=== PATIENT | female | born 1995 | race Hispanic/Latino ===

== ENCOUNTER 2019-12-04 20:16 | Inpatient (IN) | payer SELFPAY ==
[~2019-12-04] VITALS: Ht 160 cm; Wt 61.2 kg
[2019-12-04] MEDS ORDERED: ACETAMINOPHEN 325 MG TAB ONE (21:10)
[2019-12-04] MEDS ORDERED: ONDANSETRON HCL 4 MG/2 ML VIAL ONE (21:10)
[2019-12-04] MEDS ORDERED: MORPHINE SULFATE 4 MG/1ML SYG ONE (21:11)
[2019-12-04 21:30] LABS: APPEARANCE,URINE Cloudy (CLEAR); BILIRUBIN,URINE Small (NEGATIVE); COLOR,URINE Dark Yellow (YELLOW); GLUCOSE, URINE (UA) Negative (NEGATIVE); KETONES,URINE Trace mg/dL (NEGATIVE); LEUKOCYTE ESTERASE ,URINE Moderate (NEGATIVE); NITRATE,URINE Negative (NEGATIVE); OCCULT BLOOD,URINE Large (NEGATIVE); PH,URINE 6.5 (5.0-8.0); PROTEIN,URINE POS 1+ mg/dL (NEGATIVE)
[2019-12-04 21:32] LABS: BASOPHILS % (AUTO) 0.2 % (0.0-5.0); EOSINOPHILS % (AUTO) 0.4 % (0.0-8.0); HEMATOCRIT 37.1 % (36-48); MEAN CORPUSCULAR HEMOGLOBIN 28.8 pg (27.0-33.0); MEAN CORPUSCULAR HGB CONC 32.9 g/dL (32.0-36.0); MEAN CORPUSCULAR VOLUME 87.5 fL (79-99); MONOCYTES % (AUTO) 5.5 % (3.0-13.0); PLATELET COUNT (AUTO) 266 K/uL (130-400); RED BLOOD CELL COUNT(AUTO) 4.24 MIL/uL (4.00-5.50); RED CELL DISTRIBUTION WIDTH 13.1 % (11.0-15.5); WHITE BLOOD COUNT (AUTO) 25.3 K/uL (4.8-10.8)
[2019-12-04 21:40] LABS: HCG,QUAL RESULT NEGATIVE (NEGATIVE)
[2019-12-04 21:44] LABS: RBC,URINE 26-50 /HPF (0-1)
[2019-12-04 21:45] LABS: BACTERIA,URINE Rare /HPF (None Seen); CREATININE 0.8 mg/dL (0.5-1.5); POTASSIUM 3.1 mmol/L (3.5-5.1); TRANSITIONAL EPI CELLS,URINE Rare /HPF (None Seen)
[2019-12-04 21:46] LABS: SQUAMOUS EPITHELIAL CELL,UR Few /HPF (0-2)
[2019-12-04 21:50] LABS: ALBUMIN 3.5 g/dL (3.5-5.0); TOTAL PROTEIN, SERUM 8.5 g/dL (6.0-8.3)
[2019-12-04] MEDS ORDERED: ZOSYN 3.375GM+NS 50ML 50 ML IV ONE (22:08)
[2019-12-04] MEDS ORDERED: IOHEXOL-350 75 ML VIAL IV ONE (22:14)
[2019-12-05] MEDS ORDERED: LACTATED RINGERS 1000ML 1,000 ML IV SCH (00:16)
[2019-12-05] MEDS ORDERED: DIPHENHYDRAMINE HCL 25 MG CAPSULE PO PRN (00:30)
[2019-12-05] MEDS ORDERED: NITROGLYCERIN 0.4 MG SL TAB SL PRN (00:30)
[2019-12-05] MEDS ORDERED: LIDOCAINE HCL 2% VISCOUS 30 ML, MAG HYDROX/AL HYDROX/SIMETH 30 ML, BELLADONNA-PHENOBARB... PO PRN ×3 (00:30)
[2019-12-05] MEDS ORDERED: GUAIFENESIN-DM 200/20 MG 10 ML PO PRN (00:30)
[2019-12-05] MEDS ORDERED: ONDANSETRON HCL 4 MG/2 ML VIAL IV PRN (00:30)
[2019-12-05] MEDS ORDERED: LACTULOSE 20 GM/30 ML UDCUP PO PRN (00:30)
[2019-12-05] MEDS ORDERED: MAG HYDROX/AL HYDROX/SIMETH 30 ML, LIDOCAINE HCL 2% VISCOUS 30 ML, DIPHENHYDRAMINE HCL ... PO PRN ×3 (00:30)
[2019-12-05] MEDS ORDERED: DiphenhydrAMINE HCL 50 MG/ML VIAL IV PRN (00:30)
[2019-12-05] MEDS ORDERED: MAG HYDROX/AL HYDROX/SIMETH ES 30 ML SUSP UDCUP PO PRN (00:30)
[2019-12-05 03:15] VITALS: BP 106/62
[2019-12-05] MEDS: CEFTRIAXONE SODIUM 1 GM IVP SCH ×2 (03:30→12:52)
[2019-12-05] MEDS ORDERED: ONDANSETRON HCL 4 MG/2 ML VIAL ONE (04:27)
[2019-12-05] MEDS ORDERED: MORPHINE SULFATE 2 MG/ML 1ML SYG ONE (04:27)
[2019-12-05 04:28] VITALS: BP 103/57
[2019-12-05] MEDS ORDERED: MORPHINE SULFATE 2 MG/ML 1ML SYG IVP ONE (04:30)
[2019-12-05] MEDS: FAMOTIDINE/PF 20 MG/2 ML VIAL IV SCH ×2 (08:25→20:37)
[2019-12-05] MEDS: ENOXAPARIN SODIUM 40 MG/0.4 ML SYRINGE SQ SCH (08:26)
[2019-12-05 08:33] VITALS: BP 114/70
[2019-12-05] MEDS: ACETAMINOPHEN 325 MG TAB PO PRN ×2 (08:36→20:38)
[2019-12-05 12:00] VITALS: BP 108/66
[2019-12-05 12:52] LABS: BASOPHILS % (AUTO) 0.1 % (0.0-5.0); HEMATOCRIT 31.3 % (36-48); LYMPHOCYTES % (AUTO) 7.9 % (21.0-51.0); MEAN CORPUSCULAR HEMOGLOBIN 29.2 pg (27.0-33.0); MEAN CORPUSCULAR HGB CONC 33.2 g/dL (32.0-36.0); MEAN CORPUSCULAR VOLUME 87.9 fL (79-99); MONOCYTES % (AUTO) 5.2 % (3.0-13.0); PLATELET COUNT (AUTO) 226 K/uL (130-400); RED BLOOD CELL COUNT(AUTO) 3.56 MIL/uL (4.00-5.50); RED CELL DISTRIBUTION WIDTH 13.2 % (11.0-15.5); WHITE BLOOD COUNT (AUTO) 18.3 K/uL (4.8-10.8)
[2019-12-05 13:08] LABS: CREATININE 0.8 mg/dL (0.5-1.5); POTASSIUM 3.2 mmol/L (3.5-5.1)
[2019-12-05 13:13] LABS: ALBUMIN 2.6 g/dL (3.5-5.0); BILIRUBIN,TOTAL 0.4 mg/dL (0.2-1.0); TOTAL PROTEIN, SERUM 6.6 g/dL (6.0-8.3)
[2019-12-05 13:14] LABS: CREATINE KINASE, TOTAL 31 U/L (21-232); GAMMA GLUTAMYL TRANSFERASE 118 U/L (5-85)
[2019-12-05 16:00] VITALS: BP 120/76
[2019-12-05 20:00] VITALS: BP 107/57
[2019-12-06] VITALS: BP 109/57
[2019-12-06] MEDS: CEFTRIAXONE SODIUM 1 GM IVP SCH ×2 (01:01→12:21)
[2019-12-06] MEDS: ZOLPIDEM TARTRATE 5 MG TAB PO PRN ×2 (01:14→20:29)
[2019-12-06 04:00] VITALS: BP 129/71
[2019-12-06] MEDS: ACETAMINOPHEN 325 MG TAB PO PRN ×2 (04:07→15:24)
[2019-12-06 06:17] LABS: BASOPHILS % (AUTO) 0.2 % (0.0-5.0); EOSINOPHILS % (AUTO) 0.1 % (0.0-8.0); HEMATOCRIT 30.6 % (36-48); LYMPHOCYTES % (AUTO) 11.8 % (21.0-51.0); MEAN CORPUSCULAR HEMOGLOBIN 28.5 pg (27.0-33.0); MEAN CORPUSCULAR HGB CONC 32.7 g/dL (32.0-36.0); MEAN CORPUSCULAR VOLUME 87.2 fL (79-99); MONOCYTES % (AUTO) 5.5 % (3.0-13.0); NEUTROPHILS % (AUTO) 81.5 % (40.0-77.0); PLATELET COUNT (AUTO) 293 K/uL (130-400); RED BLOOD CELL COUNT(AUTO) 3.51 MIL/uL (4.00-5.50); RED CELL DISTRIBUTION WIDTH 13.4 % (11.0-15.5); WHITE BLOOD COUNT (AUTO) 14.1 K/uL (4.8-10.8)
[2019-12-06 06:34] LABS: ALBUMIN 2.8 g/dL (3.5-5.0); BILIRUBIN,TOTAL 0.2 mg/dL (0.2-1.0); CREATININE 0.6 mg/dL (0.5-1.5); POTASSIUM 3.5 mmol/L (3.5-5.1); TOTAL PROTEIN, SERUM 7.3 g/dL (6.0-8.3)
[2019-12-06 06:49] LABS: CRP QUANTITATIVE 228.6 mg/L (0.00-9.0)
[2019-12-06 08:00] VITALS: BP 118/56
[2019-12-06] MEDS: FAMOTIDINE/PF 20 MG/2 ML VIAL IV SCH ×2 (09:08→20:29)
[2019-12-06] MEDS: ENOXAPARIN SODIUM 40 MG/0.4 ML SYRINGE SQ SCH (09:09)
[2019-12-06 11:00] VITALS: BP 114/63
[2019-12-06 16:00] VITALS: BP 113/70
[2019-12-06 20:00] VITALS: BP 111/57
--- NOTE | 2019-12-06 20:06 | NUR ---
INITIAL SW spoke with patient. She lives with her 1 year old son and 3 yr old daughter. Mother in law is taking care of children while she is in the hospital. No home services or DME. Patient is able to complete ADL's and drives. 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 No PCP. Pharmacy is [facility]. No safety concerns on returning home. DCP is home. Addendum: 12/06/19 at 2008 by PEPPER MORALES SS Amended: Links added.
[2019-12-06] MEDS ORDERED: KETOROLAC TROMETHAMINE 15MG/ML ONE (22:20)
[2019-12-06] MEDS: KETOROLAC TROMETHAMINE 15MG/ML IV PRN (22:31)
[2019-12-07] VITALS: BP 114/67
[2019-12-07] MEDS: CEFTRIAXONE SODIUM 1 GM IVP SCH ×2 (01:17→12:57)
[2019-12-07 03:57] VITALS: BP 122/73
[2019-12-07 05:07] LABS: BASOPHILS % (AUTO) 0.4 % (0.0-5.0); EOSINOPHILS % (AUTO) 0.4 % (0.0-8.0); HEMATOCRIT 32.6 % (36-48); MEAN CORPUSCULAR HEMOGLOBIN 28.5 pg (27.0-33.0); MEAN CORPUSCULAR HGB CONC 32.8 g/dL (32.0-36.0); MEAN CORPUSCULAR VOLUME 86.9 fL (79-99); MONOCYTES % (AUTO) 6.2 % (3.0-13.0); PLATELET COUNT (AUTO) 310 K/uL (130-400); RED BLOOD CELL COUNT(AUTO) 3.75 MIL/uL (4.00-5.50); RED CELL DISTRIBUTION WIDTH 13.3 % (11.0-15.5); WHITE BLOOD COUNT (AUTO) 8.4 K/uL (4.8-10.8)
[2019-12-07 05:15] LABS: ALBUMIN 2.7 g/dL (3.5-5.0); BILIRUBIN,TOTAL 0.2 mg/dL (0.2-1.0); CREATININE 0.6 mg/dL (0.5-1.5); CRP QUANTITATIVE 167.4 mg/L (0.00-9.0); POTASSIUM 3.6 mmol/L (3.5-5.1); TOTAL PROTEIN, SERUM 7.5 g/dL (6.0-8.3)
[2019-12-07 08:12] VITALS: BP 114/67
[2019-12-07] MEDS: FAMOTIDINE/PF 20 MG/2 ML VIAL IV SCH ×2 (09:00→21:00)
[2019-12-07] MEDS: ACETAMINOPHEN 325 MG TAB PO PRN (09:01)
[2019-12-07] MEDS: ENOXAPARIN SODIUM 40 MG/0.4 ML SYRINGE SQ SCH (09:01)
[2019-12-07 11:50] VITALS: BP 116/67
[2019-12-07 17:00] VITALS: BP 115/67
[2019-12-07 20:00] VITALS: BP 114/69
[2019-12-07] MEDS: KETOROLAC TROMETHAMINE 15MG/ML IV PRN (21:02)
[2019-12-07] MEDS: ZOLPIDEM TARTRATE 5 MG TAB PO PRN (21:03)
[2019-12-08] VITALS: BP 107/60
[2019-12-08] MEDS: CEFTRIAXONE SODIUM 1 GM IVP SCH (00:20)
[2019-12-08 03:46] VITALS: BP 113/73
[2019-12-08 04:03] LABS: BASOPHILS % (AUTO) 0.5 % (0.0-5.0); EOSINOPHILS % (AUTO) 0.7 % (0.0-8.0); HEMATOCRIT 33.1 % (36-48); LYMPHOCYTES % (AUTO) 28.4 % (21.0-51.0); MEAN CORPUSCULAR HEMOGLOBIN 28.7 pg (27.0-33.0); MEAN CORPUSCULAR HGB CONC 32.9 g/dL (32.0-36.0); MEAN CORPUSCULAR VOLUME 87.1 fL (79-99); MONOCYTES % (AUTO) 9.4 % (3.0-13.0); NEUTROPHILS % (AUTO) 59.2 % (40.0-77.0); PLATELET COUNT (AUTO) 346 K/uL (130-400); RED CELL DISTRIBUTION WIDTH 13.2 % (11.0-15.5); WHITE BLOOD COUNT (AUTO) 5.6 K/uL (4.8-10.8)
[2019-12-08 04:16] LABS: ALBUMIN 2.8 g/dL (3.5-5.0); BILIRUBIN,TOTAL 0.2 mg/dL (0.2-1.0); CREATININE 0.6 mg/dL (0.5-1.5); CRP QUANTITATIVE 97.4 mg/L (0.00-9.0); POTASSIUM 3.8 mmol/L (3.5-5.1); TOTAL PROTEIN, SERUM 7.7 g/dL (6.0-8.3)
[2019-12-08] MEDS: ENOXAPARIN SODIUM 40 MG/0.4 ML SYRINGE SQ SCH (10:12)
[2019-12-08] MEDS: FAMOTIDINE/PF 20 MG/2 ML VIAL IV SCH ×2 (10:13→21:55)
[2019-12-08] MEDS: ACETAMINOPHEN 325 MG TAB PO PRN (10:13)
[2019-12-08 11:00] VITALS: BP 104/50
[2019-12-08] MEDS ORDERED: ACET-66 PO (11:16)
[2019-12-08 14:10] LABS: CREATINE KINASE, TOTAL 27 U/L (21-232); GAMMA GLUTAMYL TRANSFERASE 169 U/L (5-85)
[2019-12-08 16:00] VITALS: BP 103/58
[2019-12-08] MEDS: DOXYCYCLINE 100MG+NS 250ML 250 ML IV SCH (16:17)
[2019-12-08 20:29] VITALS: BP 106/64
[2019-12-09 00:07] VITALS: BP 99/53
[2019-12-09] MEDS ORDERED: CEFTRIAXONE SODIUM 1 GM IVP SCH (00:30)
[2019-12-09] MEDS: CEFTRIAXONE SODIUM 1 GM IVP SCH ×2 (01:40→23:48)
[2019-12-09] MEDS: ACETAMINOPHEN 325 MG TAB PO PRN ×2 (01:40→23:49)
[2019-12-09] MEDS: DOXYCYCLINE 100MG+NS 250ML 250 ML IV SCH ×3 (02:56→23:49)
[2019-12-09 04:20] VITALS: BP 111/52
[2019-12-09 04:41] LABS: BASOPHILS % (AUTO) 0.3 % (0.0-5.0); HEMATOCRIT 31.2 % (36-48); LYMPHOCYTES % (AUTO) 30.4 % (21.0-51.0); MEAN CORPUSCULAR HEMOGLOBIN 29.3 pg (27.0-33.0); MEAN CORPUSCULAR HGB CONC 33.3 g/dL (32.0-36.0); MEAN CORPUSCULAR VOLUME 87.9 fL (79-99); NEUTROPHILS % (AUTO) 57.1 % (40.0-77.0); PLATELET COUNT (AUTO) 503 K/uL (130-400); RED BLOOD CELL COUNT(AUTO) 3.55 MIL/uL (4.00-5.50); RED CELL DISTRIBUTION WIDTH 13.1 % (11.0-15.5); WHITE BLOOD COUNT (AUTO) 6.3 K/uL (4.8-10.8)
[2019-12-09 04:58] LABS: ALBUMIN 3.2 g/dL (3.5-5.0); BILIRUBIN,TOTAL 0.2 mg/dL (0.2-1.0); CREATININE 0.6 mg/dL (0.5-1.5); TOTAL PROTEIN, SERUM 8.6 g/dL (6.0-8.3)
[2019-12-09 08:00] VITALS: BP 100/46
[2019-12-09] MEDS: ENOXAPARIN SODIUM 40 MG/0.4 ML SYRINGE SQ SCH (09:19)
[2019-12-09] MEDS: FAMOTIDINE/PF 20 MG/2 ML VIAL IV SCH ×2 (09:19→20:38)
[2019-12-09 10:13] LABS: HEPATITIS A ANTIBODY IGM Negative (Negative); HEPATITIS B CORE IGM Negative (Negative); HEPATITIS Bs ANTIGEN SCREEN P Negative (Negative)
[2019-12-09 12:00] VITALS: BP 99/62
[2019-12-09 16:00] VITALS: BP 114/69
[2019-12-09 21:31] VITALS: BP 99/61
[2019-12-10 00:57] VITALS: BP 109/61
[2019-12-10 04:58] VITALS: BP 107/59
[2019-12-10 05:18] LABS: BASOPHILS % (AUTO) 0.5 % (0.0-5.0); EOSINOPHILS % (AUTO) 0.8 % (0.0-8.0); HEMATOCRIT 34.2 % (36-48); LYMPHOCYTES % (AUTO) 24.2 % (21.0-51.0); MEAN CORPUSCULAR HEMOGLOBIN 29.3 pg (27.0-33.0); MEAN CORPUSCULAR HGB CONC 33.6 g/dL (32.0-36.0); MEAN CORPUSCULAR VOLUME 87.2 fL (79-99); MONOCYTES % (AUTO) 6.3 % (3.0-13.0); NEUTROPHILS % (AUTO) 64.3 % (40.0-77.0); PLATELET COUNT (AUTO) 511 K/uL (130-400); RED BLOOD CELL COUNT(AUTO) 3.92 MIL/uL (4.00-5.50); RED CELL DISTRIBUTION WIDTH 13.1 % (11.0-15.5); WHITE BLOOD COUNT (AUTO) 8.3 K/uL (4.8-10.8)
[2019-12-10 05:57] LABS: ALBUMIN 3.1 g/dL (3.5-5.0); BILIRUBIN,DIRECT 0.1 mg/dL (0.0-0.3); BILIRUBIN,TOTAL 0.2 mg/dL (0.2-1.0); CREATININE 0.5 mg/dL (0.5-1.5); POTASSIUM 4.3 mmol/L (3.5-5.1); TOTAL PROTEIN, SERUM 8.1 g/dL (6.0-8.3)
[2019-12-10 07:30] VITALS: BP 93/59
[2019-12-10] MEDS: FAMOTIDINE/PF 20 MG/2 ML VIAL IV SCH (09:30)
[2019-12-10] MEDS: ENOXAPARIN SODIUM 40 MG/0.4 ML SYRINGE SQ SCH (09:34)
[2019-12-10] MEDS: DOXYCYCLINE 100MG+NS 250ML 250 ML IV SCH (13:06)
[2019-12-10] MEDS ORDERED: SULF1TAB42 PO (16:13)
--- NOTE | 2019-12-10 16:57 | NUR ---
preparing pt for discharge. discharge instructions reviewed and understood, s/l's removed w/o difficulty or complication. pt to be dismissed by w/c in good condition accompanied by staff
== END 2019-12-10 17:45 | disposition home or self-care (01) | DRG 872 ==
LOC: EDH 20:16 → EDHIP 20:17 → 3DH 12-05 01:21
PROVIDERS: ADMIT Internal Medicine; ATTEND Internal Medicine
DX: A41.9 Sepsis, unspecified organism (principal); N10 Acute pyelonephritis; Z82.49 Family history of ischemic heart disease and other diseases of the circulatory system; Z90.49 Acquired absence of other specified parts of digestive tract
CPT/HCPCS: 36415; 74177; 76705; 80048; 80053; 80074; 80076; 81001; 81025; 82550; 82977; 83605; 83690; 85025; 86140; 87040; 87088; 99291; G0378; J0696; J1650; J1885; J2270; J2405; J2543; J3490; Q9967

== ENCOUNTER 2021-02-28 20:14 | Emergency (ER) | payer MEDICAID, OTHER ==
[~2021-02-28] VITALS: Ht 152.4 cm; Wt 59.0 kg
[~2021-02-28 20:14] MED LIST: SULF1TAB42 PO
[2021-02-28 20:16] VITALS: BP 120/78
[2021-02-28 21:50] LABS: APPEARANCE,URINE CLOUDY (CLEAR); BILIRUBIN,URINE NEGATIVE (NEGATIVE); COLOR,URINE YELLOW (YELLOW); GLUCOSE, URINE (UA) NEGATIVE (NEGATIVE); KETONES,URINE NEGATIVE (NEGATIVE); LEUKOCYTE ESTERASE ,URINE TRACE (NEGATIVE); NITRATE,URINE NEGATIVE (NEGATIVE); OCCULT BLOOD,URINE LARGE (NEGATIVE); PROTEIN,URINE NEGATIVE (NEGATIVE); UROBILINOGEN,URINE 0.2 mg/dL (0.2-1.0)
[2021-02-28 21:51] LABS: BASOPHILS % (AUTO) 0.3 % (0.0-5.0); EOSINOPHILS % (AUTO) 0.7 % (0.0-8.0); HEMATOCRIT 37.5 % (36-48); LYMPHOCYTES % (AUTO) 20.9 % (21.0-51.0); MEAN CORPUSCULAR HGB CONC 33.1 g/dL (32.0-36.0); MEAN CORPUSCULAR VOLUME 87.6 fL (79-99); MONOCYTES % (AUTO) 5.1 % (3.0-13.0); NEUTROPHILS % (AUTO) 72.6 % (40.0-77.0); PLATELET COUNT (AUTO) 297 K/uL (130-400); RED BLOOD CELL COUNT(AUTO) 4.28 MIL/uL (4.00-5.50); RED CELL DISTRIBUTION WIDTH 12.8 % (11.0-15.5)
[2021-02-28 22:01] LABS: RBC,URINE 26-50 /HPF (0-1)
[2021-02-28 22:02] LABS: BACTERIA,URINE Few /HPF (None Seen); MUCUS,URINE Rare LPF (None Seen); SQUAMOUS EPITHELIAL CELL,UR Few /HPF (0-2)
[2021-02-28 22:08] LABS: CREATININE 0.6 mg/dL (0.5-1.5); POTASSIUM 3.8 mmol/L (3.5-5.1)
[2021-02-28 22:29] LABS: ALBUMIN 4.1 g/dL (3.5-5.0); BILIRUBIN,TOTAL 0.3 mg/dL (0.2-1.0)
[2021-02-28] MEDS ORDERED: CEFTRIAXONE 1G VIAL IM ONE (22:30)
[2021-02-28] MEDS ORDERED: LIDOCAINE HCL-MPF 1% 2ML VIAL ONE (22:37)
[2021-02-28] MEDS ORDERED: CEPH500B PO (22:40)
[2021-02-28] MEDS ORDERED: CEFTRIAXONE 1G VIAL IVP ONE (23:00)
== END 2021-02-28 23:03 | disposition home or self-care (01) ==
LOC: EDH 20:14
DX: N39.0 Urinary tract infection, site not specified (principal)
CPT/HCPCS: 36415; 76817; 80053; 81001; 84702; 85025; 86900; 86901; 96374; 99284; J0696; J3490

== ENCOUNTER 2021-10-24 01:24 | Emergency (ER) | payer MEDICAID ==
[~2021-10-24] VITALS: Ht 160 cm; Wt 59.9 kg
[~2021-10-24 01:24] MED LIST changes: +CEPH500B PO
[2021-10-24 02:01] LABS: BILIRUBIN,URINE NEGATIVE (NEGATIVE); COLOR,URINE YELLOW (YELLOW); GLUCOSE, URINE (UA) NEGATIVE (NEGATIVE); KETONES,URINE NEGATIVE (NEGATIVE); LEUKOCYTE ESTERASE ,URINE TRACE (NEGATIVE); NITRATE,URINE NEGATIVE (NEGATIVE); OCCULT BLOOD,URINE NEGATIVE (NEGATIVE); PH,URINE 7.5 (5.0-8.0); PROTEIN,URINE NEGATIVE (NEGATIVE)
[2021-10-24 02:02] LABS: HCG,QUAL RESULT POSITIVE (NEGATIVE)
[2021-10-24 02:03] LABS: APPEARANCE,URINE HAZY (CLEAR)
[2021-10-24 02:11] LABS: AMORPHOUS SEDIMENT,UR Many /LPF (None Seen); BACTERIA,URINE None Seen /HPF (None Seen); RBC,URINE None Seen /HPF (0-1)
[2021-10-24] MEDS ORDERED: CEPH500B PO (02:19)
[2021-10-24 03:25] VITALS: BP 104/62
== END 2021-10-24 03:32 | disposition home or self-care (01) ==
LOC: EDH 01:24
DX: O23.42 Unspecified infection of urinary tract in pregnancy, second trimester (principal); N39.0 Urinary tract infection, site not specified; Z3A.16 16 weeks gestation of pregnancy
CPT/HCPCS: 81001; 81025